=== PATIENT | female | born 1955 | race Caucasian/White ===

== ENCOUNTER → 2020-07-14 15:00 | Outpatient (BNVA) | payer OTHER, SELFPAY | PROVIDERS: PCP Internal Medicine; Visit Provider Nurse Practitioner | DX: Z13.89 Encounter for screening for other disorder (principal) | CPT/HCPCS: Q3014 ==

== ENCOUNTER → 2020-08-13 10:26 | Outpatient (BNVA) | payer MEDICARE, SELFPAY | PROVIDERS: PCP Internal Medicine; Visit Provider Nurse Practitioner | DX: Z13.89 Encounter for screening for other disorder (principal) | CPT/HCPCS: Q3014 ==

== ENCOUNTER 2020-09-02 11:33 | Outpatient (REF) | payer MEDICARE, SELFPAY ==
[2020-09-02 13:10] LABS: MANUAL DIFF FLAG NO
[2020-09-02 13:14] LABS: Basophils Absolute Auto 0.1 X10*3/uL (0.0-0.2); Basophils Percent Auto 0.8 % (0-2); Eosinophils Absolute Auto 0.2 X10*3/uL (0.0-0.4); Hematocrit 50.8 % (37-47); Hemoglobin 16.5 g/dl (12.0-16.0); Imm Gran Abs Auto 0.02 X10*3/uL (0.00-0.03); Imm Gran Pct Auto 0.3 % (0.0-0.4); Lymphocytes Absolute Auto 2.2 X10*3/uL (1.2-4.9); Lymphocytes Percent Auto 36.4 % (20-40); Mean Corpuscular HGB Conc 32.5 g/dl (31.0-35.0); Mean Corpuscular Hemoglobin 28.5 pg (27.0-33.0); Mean Corpuscular Volume 87.9 fL (80-98); Mean Platelet Volume 11.7 fL (9.4-12.3); Monocytes Absolute Auto 0.4 X10*3/uL (0.1-1.2); Monocytes Percent Auto 7.2 % (2-11); Neutrophils Absolute Auto 3.1 X10*3/uL (2.0-8.3); Neutrophils Percent Auto 52.3 % (45-73); Platelet Count 242 X10*3/uL (160-400); Red Blood Count 5.78 X10*6/uL (4.20-5.50); Red Cell Distribution Width 13.5 % (11.0-16.0)
[2020-09-02 13:37] LABS: Alanine Aminotransferase 52 U/L (0-31); Albumin Level 4.3 g/dL (3.5-5.0); Alkaline Phosphatase 113 U/L (39-117); Anion Gap 10 (12-20); Aspartate Amino Transferase 34 U/L (5-31); Bilirubin Total 0.8 mg/dL (0.0-1.0); Blood Urea Nitrogen 12 mg/dL (9-16); Calcium 9.7 mg/dL (8.4-10.2); Carbon Dioxide 30 mmol/L (22-29); Chloride 104 mmol/L (96-108); Estimated Glomerular Filt Rate > 60; Glucose Random 94 mg/dL (60-115); Potassium 4.5 mmol/L (3.3-5.1); Sodium 139 mmol/L (135-145); Total Protein 7.3 g/dL (6.5-8.0)
[2020-09-02 13:44] LABS: Glucose Urine UA NEG (NEG); Leukocyte Esterase Urine NEG (NEG); Nitrite Urine NEG (NEG); PH 5.5 (5.0-8.0); Specific Gravity - Urine 1.025 (1.005-1.025); Urine Blood NEG (NEG); Urine Ketones NEG (NEG); Urine Protein NEG (NEG-TRACE)
[2020-09-02 13:46] LABS: Appearance Urine CLEAR; Color Urine YELLOW
[2020-09-02 13:59] LABS: TSH reflex Free T4 0.61 uIU/mL (0.32-4.0)
[2020-09-03 21:52] LABS: Gliadin Deamidated IgA Ab 6 Units; Gliadin Deamidated IgG Ab 8 Units; Transglutaminase Ab IgG 5 U/mL; Transglutaminase IgA 1 U/mL
== END 2020-09-02 11:34 | disposition home or self-care (01) ==
LOC: HO.LAB 11:33
PROVIDERS: PCP Internal Medicine; Visit Provider Nurse Practitioner
DX: K59.04 Chronic idiopathic constipation (principal); R11.2 Nausea with vomiting, unspecified; R13.10 Dysphagia, unspecified; R68.81 Early satiety; K64.8 Other hemorrhoids; R06.02 Shortness of breath; M54.6 Pain in thoracic spine
CPT/HCPCS: 36415; 80053; 81003; 83516; 84443; 85025; 99212

== ENCOUNTER → 2020-10-01 07:53 | Outpatient (REF) | payer MEDICARE, SELFPAY ==
--- NOTE | ~2020-10-01 | XR_ITS ---
EXAMINATION: XR ABDOMEN WITH DECUBITUS VIEWS CLINICAL INDICATION: Pain in thoracic spine. COMPARISON: None TECHNIQUE: Abdomen with decubitus views. FINDINGS: There is scattered gas and stool in the colon without distention. No organomegaly. No radiopaque calculi. There is moderate degenerative spondylosis L1-L2 and L4-L5 disc levels. No acute fracture or lytic process seen. XR/XR abdomen w decubitus IMPRESSION: Mild constipation. No acute process. Mild spondylosis L1-L2 and L4-L5 disc levels.
--- NOTE | ~2020-10-01 | NM_ITS ---
EXAMINATION: NM RADIONUCLIDE SOLID FOOD GASTRIC EMPTYING 4-HOUR STUDY CLINICAL INFORMATION: Early satiety COMPARISON: None TECHNIQUE: A standard meal consisting of 4 oz of Egg Beaters brand tagged with 1.0 microcuries Tc-99m Sulfur Colloid, 6 oz water and 1 3/4 slice of toast with jelly was administered orally to the patient. Images were obtained using a dual head gamma camera in the anterior and posterior projections over of the stomach immediately post ingestion and at hourly intervals up to 4 hours post ingestion. The anterior and posterior counts at each time interval were averaged using the geometric mean and expressed as percentage of the immediate post ingestion counts. FINDINGS: There is good visualization of activity in the stomach immediately post ingestion. As the study progresses, there is good clearance of activity from the stomach and visualization of progressively increasing small bowel activity. By the end of the study, there is almost no retention noted in the stomach. Retention in the stomach at each time interval was: 1 hour 37% (normal 37%-90%) 2 hours 20% (normal 30%-60%) 3 hours 7% 4 hours 0% (normal 0%-10%) NM/NM gastric emptying study IMPRESSION: Normal 4-hour solid food gastric emptying study.
--- NOTE | ~2020-10-01 | XR_ITS ---
EXAMINATION: XR THORACOLUMBAR SPINE CLINICAL INFORMATION: Mid back pain. COMPARISON: None TECHNIQUE: 3 views. FINDINGS: There is normal thoracic kyphosis. The vertebral heights, alignment and disc heights are normal. There is moderate ventral spondylosis mid and lower dorsal spine. No lytic or sclerotic process. The paravertebral soft tissues are normal. XR/XR thoracic spine 2V IMPRESSION: Moderate spondylosis mid and lower dorsal spine. No visible acute fracture or dislocation seen. No lytic process.
== END ==
LOC: HO.NUCMED 07:53
PROVIDERS: PCP Internal Medicine; Visit Provider Nurse Practitioner
DX: R68.81 Early satiety (principal); R11.2 Nausea with vomiting, unspecified; K59.00 Constipation, unspecified; M54.6 Pain in thoracic spine; K59.04 Chronic idiopathic constipation
CPT/HCPCS: 72070; 74021; 78264; A9537; A9541

== ENCOUNTER → 2020-11-08 10:36 | Outpatient (BNVA) | payer MEDICARE, SELFPAY | PROVIDERS: PCP Internal Medicine; Referring Provider Internal Medicine; Visit Provider Nurse Practitioner | DX: K59.04 Chronic idiopathic constipation (principal); K64.9 Unspecified hemorrhoids; R11.2 Nausea with vomiting, unspecified; R68.81 Early satiety; R10.84 Generalized abdominal pain; M54.6 Pain in thoracic spine; M54.12 Radiculopathy, cervical region; M54.2 Cervicalgia | CPT/HCPCS: 99212 ==

== ENCOUNTER 2020-11-16 10:57 | Outpatient (REF) | payer MEDICARE, SELFPAY ==
--- NOTE | ~2020-11-16 | XR_ITS ---
EXAMINATION: XR CERVICAL SPINE CLINICAL INFORMATION: Cervicalgia. COMPARISON: None TECHNIQUE: Six views of the cervical spine. FINDINGS: No abnormal prevertebral soft tissue swelling is seen. On the lateral view, only down to C7 is visualized. There is limited visualization of the lateral spine on swimmer's view. There appears be mild disc space narrowing seen throughout the entire cervical spine. No acute fracture is evident. There is spurring with some bridging anteriorly from C2 through C6. There is some spurring seen about the joints of Luschka at C3-C4 bilaterally causing some degree of neural foraminal encroachment. There is facet arthropathy seen from C2 through C7. There is some degenerative narrowing with spurring and subchondral cyst formation about the anterior C1 vertebral body and the odontoid. XR/XR cervical spine 4V IMPRESSION: No acute cervical spine fracture identified. Multilevel degenerative changes, as described above.
[2020-11-16 12:36] LABS: Alanine Aminotransferase 39 U/L (0-31); Alkaline Phosphatase 104 U/L (39-117); Amylase 45 U/L (28-100); Anion Gap 13 (12-20); Aspartate Amino Transferase 31 U/L (5-31); Bilirubin Total 0.6 mg/dL (0.0-1.0); Blood Urea Nitrogen 9 mg/dL (9-16); Calcium 9.1 mg/dL (8.4-10.2); Carbon Dioxide 26 mmol/L (22-29); Chloride 106 mmol/L (96-108); Estimated Glomerular Filt Rate > 60; Glucose Random 134 mg/dL (60-115); Lactate Dehydrogenase 219 U/L (122-220); Lipase 71 U/L (8-78); Potassium 4.2 mmol/L (3.3-5.1); Sodium 141 mmol/L (135-145); Total Protein 7.1 g/dL (6.5-8.0)
== END 2020-11-16 10:58 | disposition home or self-care (01) ==
LOC: HO.XRAY 10:57
PROVIDERS: PCP Internal Medicine; Visit Provider Nurse Practitioner
DX: R10.84 Generalized abdominal pain (principal); M54.2 Cervicalgia; M54.12 Radiculopathy, cervical region
CPT/HCPCS: 36415; 72050; 80053; 82150; 83615; 83690

== ENCOUNTER 2020-12-01 10:49 | Outpatient (REF) | payer MEDICARE, SELFPAY | END 2020-12-01 10:50 | disposition home or self-care (01) | LOC: HO.CT 10:49 | PROVIDERS: PCP Internal Medicine; Visit Provider Nurse Practitioner | DX: Z13.89 Encounter for screening for other disorder (principal) ==

== ENCOUNTER 2021-01-04 09:02 | Day surgery (SDC) | payer MEDICARE, SELFPAY ==
[2020-12-30 09:56] VITALS: BMI 32.5
--- NOTE | 2021-01-03 09:09 | HO.ANESPROP2 ---
Documented by User: Jocelyn Moreno NP 01/03/21 09:10 HPI - Anesthesia Eval Consult details Narrative: 65yo F for Upper Endoscopy PMFSH Active Problems Active Problems: All Active Problems (Updated 12/29/20 @ 16:19 by Coni Jackson RN) Early satiety (Acute) Nausea and vomiting (Acute) Bleeding hemorrhoids (Acute) Chronic idiopathic constipation (Acute) Midline thoracic back pain (Acute) Insomnia (Acute) Generalized abdominal pain (Acute) Neck pain (Acute) Left cervical radiculopathy (Acute) Past Medical History Medical History Anxiety and depression Chronic pain Diabetes Elevated cholesterol HTN (hypertension) Hx of gastritis Insomnia Family History Family History Mother Colon cancer Surgical History Surgical History Hx of tonsillectomy Social History Social History Household Members: None Alcohol intake: current Alcohol intake frequency: holidays/special occasions only Patient Tobacco Use Status: Current everyday Tobacco user Use of substances other than those prescribed or required for medical reasons: No Are you DNR?: No Advance Directives: No Advance Directives Information Provided: Yes Meds Allergies Allergy/AdvReac Type Severity Reaction Status Date / Time cephalexin [From Keflex] Allergy Severe HIVES Verified 01/04/21 09:12 Home Medications Medication Instructions Recorded Confirmed Last Taken Type albuterol sulfate 90 mcg/actuation 2 puff INHALATION 07/14/20 11/08/20 Unknown History aerosol inhaler aspirin 81 mg chewable tablet 1 tab PO DAILY 07/14/20 12/29/20 Unknown History atenolol 25 mg tablet 25 mg PO DAILY 07/14/20 12/29/20 Unknown History atorvastatin 80 mg tablet 80 mg PO DAILY 07/14/20 12/29/20 Unknown History blood sugar diagnostic #10 ea 07/14/20 11/08/20 Unknown History blood-glucose meter #1 ea 07/14/20 11/08/20 Unknown History clotrimazole-betamethasone 1 appl TOPICAL BID 07/14/20 11/08/20 Unknown History %-0.05 % topical cream doxycycline monohydrate 100 mg 100 mg PO BID 07/14/20 12/29/20 Unknown History capsule enalapril maleate 10 mg tablet 10 mg PO DAILY 07/14/20 12/29/20 Unknown History ergocalciferol (vitamin D2) 1,250 1,250 mcg PO QWEEK 07/14/20 12/29/20 Unknown History mcg (50,000 unit) capsule famotidine 20 mg tablet 20 mg PO BID 07/14/20 12/29/20 Unknown History fluconazole 150 mg tablet 150 mg PO 07/14/20 11/08/20 Unknown History fluticasone propionate 110 2 puff INHALATION BID 07/14/20 12/29/20 Unknown History mcg/actuation HFA aerosol inhaler furosemide 20 mg tablet 20 mg PO DAILY 07/14/20 12/29/20 Unknown History hydroxyzine HCl 25 mg tablet 25 mg PO BID PRN 07/14/20 12/29/20 Unknown History isosorbide mononitrate 30 mg 30 mg PO QAM 07/14/20 12/29/20 Unknown History tablet,extended release 24 hr lancets 28 gauge #100 ea 07/14/20 11/08/20 Unknown History metformin 500 mg tablet 500 mg PO 07/14/20 11/08/20 Unknown History montelukast 10 mg tablet 10 mg PO BEDTIME 07/14/20 12/29/20 Unknown History omega-3 acid ethyl esters 1 gram 2 cap PO BID 07/14/20 12/29/20 Unknown History capsule sertraline 25 mg tablet 25 mg PO DAILY 07/14/20 12/29/20 Unknown History tramadol 50 mg tablet 50 mg PO BID PRN 07/14/20 12/29/20 Unknown History trazodone 50 mg tablet 50 mg PO BEDTIME 07/14/20 12/29/20 Unknown History clonazepam 2 mg tablet 2 mg PO BID PRN 11/08/20 12/29/20 Unknown History diazepam 10 mg tablet 10 mg PO BEDTIME PRN tab 11/08/20 12/29/20 Unknown History escitalopram oxalate 10 mg tablet 1 tab PO DAILY 12/29/20 12/29/20 Unknown History plecanatide 3 mg tablet (Trulance) 1 tab PO DAILY 12/29/20 12/29/20 Unknown History tiotropium bromide 18 mcg capsule 1 cap INHALATION DAILY 12/29/20 12/29/20 Unknown History with inhalation device (Spiriva with HandiHaler) Exam Exam Date and Time: January 03, [id number] Height,Weight and Vital Signs: Height 5 ft 3 in Weight 83.461 kg Pertinent Lab Results Pertinent Lab Results: Laboratory Tests 09/02/20 11/16/20 12:40 11:25 WBC 6.0 Hgb 16.5 H Hct 50.8 H Plt Count 242 Sodium 141 Potassium 4.2 Chloride 106 Carbon Dioxide 26 BUN 9 Creatinine 0.68 Assessment and Plan Assessment Anesthesia Assessment: Chart Reviewed Documented by User: Meron Urban MD 01/04/21 10:34 [facility] Active Problems Active Problems: All Active Problems (Updated 12/29/20 @ 16:19 by Coni Jackson RN) Early satiety (Acute) Nausea and vomiting (Acute) Bleeding hemorrhoids (Acute) Chronic idiopathic constipation (Acute) Midline thoracic back pain (Acute) Insomnia (Acute) Generalized abdominal pain (Acute) Neck pain (Acute) Left cervical radiculopathy Smoker Asthma/COPD. O2 sats 91-94 in [place]. Not on home O2 Past Medical History Medical History Anxiety and depression Chronic pain Diabetes Elevated cholesterol HTN (hypertension) Hx of gastritis Insomnia Family History Family History Mother Colon cancer Family history of problems with anesthesia: No Surgical History Surgical History Hx of tonsillectomy History of Problems with Anesthesia: No Social History Social History Household Members: None Alcohol intake: current Alcohol intake frequency: holidays/special occasions only Patient Tobacco Use Status: Current everyday Tobacco user Use of substances other than those prescribed or required for medical reasons: No Are you DNR?: No Advance Directives: No Advance Directives Information Provided: Yes Meds Allergies Allergy/AdvReac Type Severity Reaction Status Date / Time cephalexin [From Keflex] Allergy Severe HIVES Verified 01/04/21 09:12 Home Medications Medication Instructions Recorded Confirmed Last Taken Type albuterol sulfate 90 mcg/actuation 2 puff INHALATION 07/14/20 11/08/20 Unknown History aerosol inhaler aspirin 81 mg chewable tablet 1 tab PO DAILY 07/14/20 12/29/20 Unknown History atenolol 25 mg tablet 25 mg PO DAILY 07/14/20 12/29/20 Unknown History atorvastatin 80 mg tablet 80 mg PO DAILY 07/14/20 12/29/20 Unknown History blood sugar diagnostic #10 ea 07/14/20 11/08/20 Unknown History blood-glucose meter #1 ea 07/14/20 11/08/20 Unknown History clotrimazole-betamethasone 1 appl TOPICAL BID 07/14/20 11/08/20 Unknown History %-0.05 % topical cream doxycycline monohydrate 100 mg 100 mg PO BID 07/14/20 12/29/20 Unknown History capsule enalapril maleate 10 mg tablet 10 mg PO DAILY 07/14/20 12/29/20 Unknown History ergocalciferol (vitamin D2) 1,250 1,250 mcg PO QWEEK 07/14/20 12/29/20 Unknown History mcg (50,000 unit) capsule famotidine 20 mg tablet 20 mg PO BID 07/14/20 12/29/20 Unknown History fluconazole 150 mg tablet 150 mg PO 07/14/20 11/08/20 Unknown History fluticasone propionate 110 2 puff INHALATION BID 07/14/20 12/29/20 Unknown History mcg/actuation HFA aerosol inhaler furosemide 20 mg tablet 20 mg PO DAILY 07/14/20 12/29/20 Unknown History hydroxyzine HCl 25 mg tablet 25 mg PO BID PRN 07/14/20 12/29/20 Unknown History isosorbide mononitrate 30 mg 30 mg PO QAM 07/14/20 12/29/20 Unknown History tablet,extended release 24 hr lancets 28 gauge #100 ea 07/14/20 11/08/20 Unknown History metformin 500 mg tablet 500 mg PO 07/14/20 11/08/20 Unknown History montelukast 10 mg tablet 10 mg PO BEDTIME 07/14/20 12/29/20 Unknown History omega-3 acid ethyl esters 1 gram 2 cap PO BID 07/14/20 12/29/20 Unknown History capsule sertraline 25 mg tablet 25 mg PO DAILY 07/14/20 12/29/20 Unknown History tramadol 50 mg tablet 50 mg PO BID PRN 07/14/20 12/29/20 Unknown History trazodone 50 mg tablet 50 mg PO BEDTIME 07/14/20 12/29/20 Unknown History clonazepam 2 mg tablet 2 mg PO BID PRN 11/08/20 12/29/20 Unknown History diazepam 10 mg tablet 10 mg PO BEDTIME PRN tab 11/08/20 12/29/20 Unknown History escitalopram oxalate 10 mg tablet 1 tab PO DAILY 12/29/20 12/29/20 Unknown History plecanatide 3 mg tablet (Trulance) 1 tab PO DAILY 12/29/20 12/29/20 Unknown History tiotropium bromide 18 mcg capsule 1 cap INHALATION DAILY 12/29/20 12/29/20 Unknown History with inhalation device (Spiriva with HandiHaler) Exam Height,Weight and Vital Signs: Height 5 ft 3 in Weight 83.461 kg Vital Signs Temp Pulse Resp BP Pulse Ox 01/04/21 09:56 98.4 F 82 18 134/84 93 Pertinent Lab Results Pertinent Lab Results: Laboratory Tests 09/02/20 11/16/20 12:40 11:25 WBC 6.0 Hgb 16.5 H Hct 50.8 H Plt Count 242 Sodium 141 Potassium 4.2 Chloride 106 Carbon Dioxide 26 BUN 9 Creatinine 0.68 Lab Results 01/04/21 Range/Units 09:37 POC Glucose 110 (60-115) mg/dL Airway Mallampati Class: III TM Dist: >3cm Neck ROM: Full Denture: Upper and Lower Heart: RRR Lungs: CTAB Assessment and Plan Assessment Anesthesia Assessment: Anesthesia Plan Discussed Final Anesthetic Review Family History of Problems with Anesthesia: No History of Problems with Anesthesia: No NPO: Yes ASA Class: III Final Preanesthetic Review: No Changes in Pt Med Stat, Meds/Allgs Chart Reviewed, Consent Obtained/Reviewed and Anes Risks/Benef Reviewed Patient Risk: Intermediate Procedure Risk: Low Assessment/Block/Sedation in SS: Assess/Block/Sedation-SS Anesthetic Plan Anesthetic Plan: MAC: Disposition: Standard PACU
--- NOTE | 2021-01-04 09:21 | MHC.SHP ---
Pre-Procedural Eval Section A Date of Service: 01/04/21 The patient is an INPATIENT: No The History & Physical has been completed within 30 days and I have reviewed it.: No Section B Chief Complaint: abdominal pain Details of Present Illness: chronic abdominal pain. Relevant Family History (Specify if Yes): Yes Relevant Social History: None Present Medications: see Short Stay Collaborative assessment Medical History: Significant History (DM, hypertension, elevated cholesterol level, chronic pain) History of Previous Operations: Relevant previous surgery/procedure and date(s) (hx of tonsillectomy) Allergies: Allergies Allergy/AdvReac Type Severity Reaction Status Date / Time cephalexin [From Keflex] Allergy Severe HIVES Verified 01/04/21 09:12 Review of Systems Sugical H&P ROS: Negative: Constitution, Cardiovascular and Respiratory and Yes, Specify: Gastrointestinal (abd pain) Exam Surgical H&P Exam: Normal: Heart, Normal: Lungs, Normal: Extremities and Normal: Abdomen Plan Diagnosis/Plan: Unchanged I have reviewed the history and physical and performed a pertinent physical examination on my patient. No changes have occurred unless specified.
--- NOTE | 2021-01-04 09:22 | P.BOP_ITS ---
Brief Operative Note Date of Service: 01/04/21 Pre-op diagnosis: Abdominal pain Post-op diagnosis: other (Gastritis, multiple gastric ulcers, duodenitis) Procedure: FLEXIBLE TRANSORAL UPPER GASTROINTESTINAL ENDOSCOPY WITH BIOPSIES Consent: Indications for the procedure and potential complications of bleeding, perforation, reaction to medications and missed diagnosis were discussed with the patient and informed consent was obtained. Instrument: Olympus GIF H 190 mid size upper endoscope Monitoring: Vital signs and clinical assessment, continuous EKG monitoring, Pulse oximetry, Carbon Dioxide monitoring and blood pressure monitoring were done throughout the procedure. Procedure: The patient was placed in the left lateral decubitis position and pre-procedure medications were administered and a bite block was placed. The endoscope was inserted into the mouth and advanced under direct vision to the third part of duodenum. A careful inspection was made as the upper endoscope was withdrawn including a retroflexed examination of the proximal stomach; Findings and interventions are described below. Findings: Larynx: Normal Esophagus: Mildly tortuous esophagus with increased tertiary contractions without stricture or ring. GE junction at 33 cms, small hiatal hernia 33 to 35 cms.. No esophagitis or Clemens Stomach: Moderate diffuse gastric erythema with multiple edematous folds in the antrum with chronic appearing non-bleeding 5 to 10 mm ulcers. Biopsies were ob tained. Grade 2 flap valve on retroflexed examination of the cardia. Duodenum: Mild duodenitis in the bulb. A prominent fold in the proximal descending duodenum - biopsied. Biopsies were obtained from 3rd part of the duodenum to check for celiac sprue Intervention: Biopsies as noted above Impression and Post Procedure Diagnosis: Endoscopy Findings: ESOPHAGUS: Small hiatal hernia and mildly tortuous esophagus with increased tertiary contractions without stricture or ring. STOMACH: Moderate diffuse gastric erythema with multiple edematous folds in the antrum with chronic appearing non-bleeding 5 to 10 mm ulcers. Biopsies were obtained. DUODENUM: Mild duodenitis in the bulb. A prominent fold in the proximal descending duodenum - biopsied Plan: Await pathology results. Pt was advised to start taking Omeprazole 20 mg twice daily - prescription was sent to patient's preferred pharmacy. Patient has an appointment on 01/21/21 in the GI Clinic with Christine Romero NP . Repeat EGD in 8 to 12 weeks to confirm ulcers have healed. Above findings were reviewed with the patient and Peptic ulcer disease handouts were given in the discharge area. Pt was advised to schedule an Abd CT scan for further evaluation of abdominal pain - Order was placed by Christine Romero in November. Surgeon: Korin Franklin MD Anesthesia: MAC (Aure Linares CRNA) Was an Manager Sourcing used for this Procedure?: Yes Manager Sourcing: Susan Trinidad Estimated blood loss (mL): 0 Pathology: other (A. small bowel, R/O Celiac/Sprue B. duodenal fold C. gastric ulcers D. gastric antrum, R/O H. pylori) Condition: stable Disposition: PACU
--- NOTE | 2021-01-04 09:23 | W.PM.OPN ---
Operative Note Operative Note Date of Service: 01/04/21 Narrative: Pre-op diagnosis:?Abdominal pain Post-op diagnosis:?other (Gastritis, multiple gastric ulcers, duodenitis) Procedure:? FLEXIBLE TRANSORAL UPPER GASTROINTESTINAL ENDOSCOPY WITH BIOPSIES Consent:?Indications for the procedure and potential complications of bleeding, perforation, reaction to medications and missed diagnosis were discussed with the patient and informed consent was obtained. Instrument:?Olympus GIF H 190 mid size upper endoscope Monitoring: Vital signs and clinical assessment, continuous EKG monitoring, Pulse oximetry, Carbon Dioxide monitoring and blood pressure monitoring were done throughout the procedure. Procedure:?The patient was placed in the left lateral decubitis position and pre-procedure medications were administered and a bite block was placed. The endoscope was inserted into the mouth and advanced under direct vision to the third part of duodenum. A careful inspection was made as the upper endoscope was withdrawn including a retroflexed examination of the proximal stomach; Findings and interventions are described below. Findings: Larynx:? Normal Esophagus:? Mildly tortuous esophagus with increased tertiary contractions without stricture or ring. ??GE junction at 33 cms, small hiatal hernia 33 to 35 cms.. No esophagitis or Clemens Stomach:?Moderate diffuse gastric erythema with multiple edematous folds in the antrum with chronic appearing non-bleeding 5 to 10 mm ulcers. Biopsies were obtained. Grade 2 flap valve on retroflexed examination of the cardia. Duodenum:?Mild duodenitis in the bulb.? A prominent fold in the proximal descending duodenum - biopsied.? Biopsies were obtained from 3rd part of the duodenum to check for celiac sprue Intervention:?Biopsies as noted above Impression and Post Procedure Diagnosis: Endoscopy Findings: ESOPHAGUS: ? Small hiatal hernia and mildly tortuous esophagus with increased tertiary contractions without stricture or ring.? STOMACH: ? Moderate diffuse gastric erythema with multiple edematous folds in the antrum with chronic appearing non-bleeding 5 to 10 mm ulcers. Biopsies were obtained. DUODENUM: Mild duodenitis in the bulb.? A prominent fold in the proximal descending duodenum - biopsied Plan: Await pathology results. Pt was advised to start taking Omeprazole 20 mg twice daily - prescription was sent to patient's preferred pharmacy. Patient has an appointment on 01/21/21 in the GI Clinic with Christine Romero NP . Repeat EGD in 8 to 12 weeks to confirm ulcers have healed. Above findings were reviewed with the patient and Peptic ulcer disease handouts were given in the discharge area. Pt was advised to schedule an Abd CT scan for further evaluation of abdominal pain - Order was placed by Christine Romero in November. Surgeon:?Korin Franklin MD Anesthesia:?MAC (Aure Linares CRNA) Was an Building Construction Superintendent used for this Procedure?:?Yes Building Construction Superintendent:?Susan Trinidad Estimated blood loss (mL):?0 Pathology:?other (A. small bowel, R/O Celiac/Sprue? B. duodenal fold? C. gastric ulcers? D. gastric antrum, R/O H. pylori) Condition:?stable Disposition:?PACU
[2021-01-04 09:47] LABS: Glucose, Whole Blood 110 mg/dL (60-115)
[2021-01-04 09:56] VITALS: BP 134/84; PULSE 82; RESP 18; TEMP 36.9; O2SAT 93
[2021-01-04] MEDS: Lactated Ringers 1,000 ML 100 ML IVCONT (10:10)
[2021-01-04 10:52] VITALS: BP 104/59; PULSE 85; RESP 18; TEMP 36.5; O2SAT 99
[2021-01-04 11:07] VITALS: BP 109/69; PULSE 18; RESP 18; TEMP 36.5; O2SAT 94
== END 2021-01-04 12:01 | disposition home or self-care (01) ==
PROVIDERS: PCP Internal Medicine; Visit Provider Internal Medicine Gastroenterology
PROC: 0DJ08ZZ Inspection of Upper Intestinal Tract, Via Natural or Artificial Opening Endoscopic (ICD-10-PCS; CPT 43235; principal; 2021-01-04 10:00)
DX: K29.70 Gastritis, unspecified, without bleeding (principal); B96.81 Helicobacter pylori [H. pylori] as the cause of diseases classified elsewhere; K25.9 Gastric ulcer, unspecified as acute or chronic, without hemorrhage or perforation; K29.80 Duodenitis without bleeding; K44.9 Diaphragmatic hernia without obstruction or gangrene; K59.04 Chronic idiopathic constipation; G89.29 Other chronic pain; I10 Essential (primary) hypertension; E11.9 Type 2 diabetes mellitus without complications; Z79.82 Long term (current) use of aspirin; Z79.84 Long term (current) use of oral hypoglycemic drugs; Z79.899 Other long term (current) drug therapy
CPT/HCPCS: 43239; 82947; 88305; 88342

== ENCOUNTER → 2021-01-21 09:25 | Outpatient (BNVA) | payer MEDICARE, SELFPAY | PROVIDERS: PCP Internal Medicine; Visit Provider Nurse Practitioner | DX: K59.04 Chronic idiopathic constipation (principal); K25.9 Gastric ulcer, unspecified as acute or chronic, without hemorrhage or perforation; A04.8 Other specified bacterial intestinal infections | CPT/HCPCS: Q3014 ==

== ENCOUNTER 2021-03-22 06:40 | Day surgery (SDC) | payer MEDICARE, SELFPAY ==
[2021-03-15 14:17] VITALS: BMI 32.5
--- NOTE | 2021-03-21 09:45 | HO.ANESPROP2 ---
Documented by User: Jocelyn Moreno NP 03/21/21 09:46 HPI - Anesthesia Eval Consult details Narrative: 65yo F for Upper Endoscopy s/p EGD 12/2020 with TIVA PMFSH Active Problems Active Problems: All Active Problems (Updated 03/15/21 @ 14:14 by Bethanie Camargo RN) Bleeding hemorrhoids (Acute) Chronic idiopathic constipation (Acute) Midline thoracic back pain (Acute) Insomnia (Acute) Neck pain (Acute) Left cervical radiculopathy (Acute) Multiple gastric ulcers (Acute) H. pylori infection (Acute) Past Medical History Medical History (Updated 03/15/21 @ 14:14 by Bethanie Camargo RN) Anxiety and depression Chronic pain Diabetes Early satiety Elevated cholesterol Generalized abdominal pain HTN (hypertension) Hx of gastritis Insomnia Nausea and vomiting Family History Family History Mother Colon cancer Family history of problems with anesthesia: No Surgical History Surgical History History of esophagogastroduodenoscopy (EGD) Hx of tonsillectomy History of Problems with Anesthesia: No Social History Social History Household Members: None Alcohol intake: current Alcohol intake frequency: holidays/special occasions only Patient Tobacco Use Status: Current everyday Tobacco user Tobacco use type: Cigarette Advance Directives Information Provided: Yes (informational brochure mailed) Advance Directives on File: No Meds Allergies Allergy/AdvReac Type Severity Reaction Status Date / Time cephalexin [From Keflex] Allergy Severe HIVES Verified 01/04/21 09:12 Home Medications Medication Instructions Recorded Confirmed Last Taken Type albuterol sulfate 90 mcg/actuation 2 puff INHALATION 07/14/20 11/08/20 Unknown History aerosol inhaler aspirin 81 mg chewable tablet 1 tab PO DAILY 07/14/20 12/29/20 Unknown History atenolol 25 mg tablet 25 mg PO DAILY 07/14/20 12/29/20 Unknown History atorvastatin 80 mg tablet 80 mg PO DAILY 07/14/20 12/29/20 Unknown History blood sugar diagnostic #10 ea 07/14/20 11/08/20 Unknown History blood-glucose meter #1 ea 07/14/20 11/08/20 Unknown History clotrimazole-betamethasone 1 appl TOPICAL BID 07/14/20 11/08/20 Unknown History %-0.05 % topical cream doxycycline monohydrate 100 mg 100 mg PO BID 07/14/20 12/29/20 Unknown History capsule enalapril maleate 10 mg tablet 10 mg PO DAILY 07/14/20 12/29/20 Unknown History ergocalciferol (vitamin D2) 1,250 1,250 mcg PO QWEEK 07/14/20 12/29/20 Unknown History mcg (50,000 unit) capsule famotidine 20 mg tablet 20 mg PO BID 07/14/20 12/29/20 Unknown History fluconazole 150 mg tablet 150 mg PO 07/14/20 11/08/20 Unknown History fluticasone propionate 110 2 puff INHALATION BID 07/14/20 12/29/20 Unknown History mcg/actuation HFA aerosol inhaler furosemide 20 mg tablet 20 mg PO DAILY 07/14/20 12/29/20 Unknown History hydroxyzine HCl 25 mg tablet 25 mg PO BID PRN 07/14/20 12/29/20 Unknown History isosorbide mononitrate 30 mg 30 mg PO QAM 07/14/20 12/29/20 Unknown History tablet,extended release 24 hr lancets 28 gauge #100 ea 07/14/20 11/08/20 Unknown History metformin 500 mg tablet 500 mg PO 07/14/20 11/08/20 Unknown History montelukast 10 mg tablet 10 mg PO BEDTIME 07/14/20 12/29/20 Unknown History omega-3 acid ethyl esters 1 gram 2 cap PO BID 07/14/20 12/29/20 Unknown History capsule sertraline 25 mg tablet 25 mg PO DAILY 07/14/20 12/29/20 Unknown History tramadol 50 mg tablet 50 mg PO BID PRN 07/14/20 12/29/20 Unknown History trazodone 50 mg tablet 50 mg PO BEDTIME 07/14/20 12/29/20 Unknown History clonazepam 2 mg tablet 2 mg PO BID PRN 11/08/20 12/29/20 Unknown History diazepam 10 mg tablet 10 mg PO BEDTIME PRN tab 11/08/20 12/29/20 Unknown History escitalopram oxalate 10 mg tablet 1 tab PO DAILY 12/29/20 12/29/20 03/22/21 History plecanatide 3 mg tablet (Trulance) 1 tab PO DAILY 12/29/20 12/29/20 Unknown History tiotropium bromide 18 mcg capsule 1 cap INHALATION DAILY 12/29/20 12/29/20 Unknown History with inhalation device (Spiriva with HandiHaler) Exam Exam Date and Time: March 21, 2021 0945 Height,Weight and Vital Signs: Height 5 ft 3 in Weight 83.461 kg Pertinent Lab Results Pertinent Lab Results: Laboratory Tests 09/02/20 11/16/20 12:40 11:25 WBC 6.0 Hgb 16.5 H Hct 50.8 H Plt Count 242 Sodium 141 Potassium 4.2 Chloride 106 Carbon Dioxide 26 BUN 9 Creatinine 0.68 Assessment and Plan Assessment Anesthesia Assessment: Chart Reviewed Final Anesthetic Review Family History of Problems with Anesthesia: No History of Problems with Anesthesia: No Documented by User: Nataliia Elder MD 03/22/21 09:33 [facility] Past Medical History Medical History (Updated 03/15/21 @ 14:14 by Bethanie Camargo RN) Anxiety and depression Chronic pain Diabetes Early satiety Elevated cholesterol Generalized abdominal pain HTN (hypertension) Hx of gastritis Insomnia Nausea and vomiting Functional capacity: independent ambulation Patient : No Family History Family History Mother Colon cancer Surgical History Surgical History History of esophagogastroduodenoscopy (EGD) Hx of tonsillectomy Social History Social History Household Members: None Alcohol intake: current Alcohol intake frequency: holidays/special occasions only Patient Tobacco Use Status: Current everyday Tobacco user Tobacco use type: Cigarette Advance Directives Information Provided: Yes (informational brochure mailed) Advance Directives on File: No Meds Allergies Allergy/AdvReac Type Severity Reaction Status Date / Time cephalexin [From Keflex] Allergy Severe HIVES Verified 01/04/21 09:12 Home Medications Medication Instructions Recorded Confirmed Last Taken Type albuterol sulfate 90 mcg/actuation 2 puff INHALATION 07/14/20 11/08/20 Unknown History aerosol inhaler aspirin 81 mg chewable tablet 1 tab PO DAILY 07/14/20 12/29/20 Unknown History atenolol 25 mg tablet 25 mg PO DAILY 07/14/20 12/29/20 Unknown History atorvastatin 80 mg tablet 80 mg PO DAILY 07/14/20 12/29/20 Unknown History blood sugar diagnostic #10 ea 07/14/20 11/08/20 Unknown History blood-glucose meter #1 ea 07/14/20 11/08/20 Unknown History clotrimazole-betamethasone 1 appl TOPICAL BID 07/14/20 11/08/20 Unknown History %-0.05 % topical cream doxycycline monohydrate 100 mg 100 mg PO BID 07/14/20 12/29/20 Unknown History capsule enalapril maleate 10 mg tablet 10 mg PO DAILY 07/14/20 12/29/20 Unknown History ergocalciferol (vitamin D2) 1,250 1,250 mcg PO QWEEK 07/14/20 12/29/20 Unknown History mcg (50,000 unit) capsule famotidine 20 mg tablet 20 mg PO BID 07/14/20 12/29/20 Unknown History fluconazole 150 mg tablet 150 mg PO 07/14/20 11/08/20 Unknown History fluticasone propionate 110 2 puff INHALATION BID 07/14/20 12/29/20 Unknown History mcg/actuation HFA aerosol inhaler furosemide 20 mg tablet 20 mg PO DAILY 07/14/20 12/29/20 Unknown History hydroxyzine HCl 25 mg tablet 25 mg PO BID PRN 07/14/20 12/29/20 Unknown History isosorbide mononitrate 30 mg 30 mg PO QAM 07/14/20 12/29/20 Unknown History tablet,extended release 24 hr lancets 28 gauge #100 ea 07/14/20 11/08/20 Unknown History metformin 500 mg tablet 500 mg PO 07/14/20 11/08/20 Unknown History montelukast 10 mg tablet 10 mg PO BEDTIME 07/14/20 12/29/20 Unknown History omega-3 acid ethyl esters 1 gram 2 cap PO BID 07/14/20 12/29/20 Unknown History capsule sertraline 25 mg tablet 25 mg PO DAILY 07/14/20 12/29/20 Unknown History tramadol 50 mg tablet 50 mg PO BID PRN 07/14/20 12/29/20 Unknown History trazodone 50 mg tablet 50 mg PO BEDTIME 07/14/20 12/29/20 Unknown History clonazepam 2 mg tablet 2 mg PO BID PRN 11/08/20 12/29/20 Unknown History diazepam 10 mg tablet 10 mg PO BEDTIME PRN tab 11/08/20 12/29/20 Unknown History escitalopram oxalate 10 mg tablet 1 tab PO DAILY 12/29/20 12/29/20 03/22/21 History plecanatide 3 mg tablet (Trulance) 1 tab PO DAILY 12/29/20 12/29/20 Unknown History tiotropium bromide 18 mcg capsule 1 cap INHALATION DAILY 12/29/20 12/29/20 Unknown History with inhalation device (Spiriva with HandiHaler) Exam Airway Mallampati Class: IV TM Dist: >3cm Neck ROM: Full Denture: Upper and Lower Heart: RRR Lungs: CTA Assessment and Plan Final Anesthetic Review ASA Class: III Final Preanesthetic Review: No Changes in Pt Med Stat Patient Risk: Intermediate Procedure Risk: Low Anesthetic Plan Anesthetic Plan: MAC: Disposition: Standard PACU
[2021-03-22 08:05] VITALS: BP 136/80; PULSE 86; RESP 16; TEMP 36.7; O2SAT 96
[2021-03-22] MEDS: Lactated Ringers 1,000 ML 100 ML IVCONT (08:24)
[2021-03-22 08:28] LABS: Glucose, Whole Blood 128 mg/dL (60-115)
--- NOTE | 2021-03-22 08:51 | MHC.SHP ---
Pre-Procedural Eval Section A Date of Service: 03/22/21 The patient is an INPATIENT: No The History & Physical has been completed within 30 days and I have reviewed it.: No Section B Chief Complaint: Gastric Ulcer Relevant Family History (Specify if Yes): Yes Relevant Social History: Tobacco Use Present Medications: see Short Stay Collaborative assessment Medical History: Significant History (Anxiety and depression Chronic pain Diabetes Early satiety Elevated cholesterol Generalized abdominal pain HTN (hypertension) Hx of gastritis Insomnia Nausea and vomiting) History of Previous Operations: Relevant previous surgery/procedure and date(s) (History of esophagogastroduodenoscopy (EGD) Hx of tonsillectomy) Allergies: Allergies Allergy/AdvReac Type Severity Reaction Status Date / Time cephalexin [From Keflex] Allergy Severe HIVES Verified 01/04/21 09:12 Review of Systems Sugical H&P ROS: Negative: Constitution, Cardiovascular and Respiratory and Yes, Specify: Gastrointestinal (chronic abdominal pain) Exam Surgical H&P Exam: Normal: Heart, Normal: Lungs and Normal: Extremities and Significant Findings: Abdomen (upper abd tenderness) Plan Diagnosis/Plan: Unchanged I have reviewed the history and physical and performed a pertinent physical examination on my patient. No changes have occurred unless specified.
--- NOTE | 2021-03-22 08:56 | P.BOP_ITS ---
Brief Operative Note Date of Service: 03/22/21 Pre-op diagnosis: Abdominal pain, nausea vomiting, early satiety, follow-up of gastric ulcers Post-op diagnosis: other (GERD, persistent gastric ulcers, prominent duodenal papilla/submucosal mass or cyst) Procedure: FLEXIBLE TRANSORAL UPPER GASTROINTESTINAL ENDOSCOPY WITH BIOPSIES Consent: Indications for the procedure and potential complications of bleeding, perforation, reaction to medications and missed diagnosis were discussed with the patient and informed consent was obtained. Instrument: Olympus GIF H 190 mid size upper endoscope Monitoring: Vital signs and clinical assessment, continuous EKG monitoring, Pulse oximetry, Carbon Dioxide monitoring and blood pressure monitoring were done throughout the procedure. Procedure: The patient was placed in the left lateral decubitis position and pre-procedure medications were administered and a bite block was placed. The endoscope was inserted into the mouth and advanced under direct vision to the third part of duodenum. A careful inspection was made as the upper endoscope was withdrawn including a retroflexed examination of the proximal stomach; Findings and interventions are described below. Findings: Larynx: Normal Esophagus: Tortuous esophagus with increased tertiary contractions without stricture or ring. GE junction at 36 cms. No esophagitis. A 1.5 to 2 cms island of possible Cleemns's - biopsies were obtained. Stomach: Multiple gastric ulcers in the entire stomach - biopsied. Biopsies were obtained to check for H Pylori eradication. Grade 2 flap valve on retroflexed examination of the cardia. Duodenum: Normal bulb. Prominent duodenal papilla with a smooth 2 cms submucosal mass/cyst in the medial wall of descending duodenum - multiple biopsies were obtained. Intervention: Biopsies as noted above Impression and Post Procedure Diagnosis: Endoscopy Findings: ESOPHAGUS: A 1.5 to 2 cms island of possible Clemens's - biopsies were obtained. STOMACH: Persistent gastric ulcers - likely a combination of aspirin use and continued heavy smoking. (Pt reported she has not been taking Omeprazole since she ran out of the medication - refill sent). DUODENUM: Prominent duodenal papilla/smooth 2 cms mass with normal overlying mucosa in the medial wall of descending duodenum - multiple biopsies were obtained. Plan: Await pathology results Patient has an appointment on 04/05/21 in the GI Clinic with Christine Romero NP. Check a fasting serum gastric level. Schedule MRCP to FU on prominent duodenal papilla. If MRCP is normal, advise referreing patient to [facility] [place] for [place]. GERD and PUD handouts were given in the discharge area Surgeon: Korin Franklin MD Anesthesia: MAC (Dr Malone) Was an Harvest Field Ticketer used for this Procedure?: Yes Harvest Field Ticketer: Susan Trinidad Estimated blood loss (mL): 0 Pathology: other (A. duodenal papilla bxs B. gastric antrum bxs, R/O H. pylori C. gastric ulcers bxs D. distal esophagus bxs, R/O Clemens's) Condition: stable Disposition: PACU
--- NOTE | 2021-03-22 08:57 | P.OP_ITS ---
Operative Note Operative Note Date of Service: 03/22/21 Narrative: Pre-op diagnosis:?Abdominal pain, nausea vomiting, early satiety, follow-up of gastric ulcers Post-op diagnosis:?other (GERD, persistent gastric ulcers, prominent duodenal papilla/submucosal mass or cyst) Procedure:? FLEXIBLE TRANSORAL UPPER GASTROINTESTINAL ENDOSCOPY WITH BIOPSIES Consent:?Indications for the procedure and potential complications of bleeding, perforation, reaction to medications and missed diagnosis were discussed with the patient and informed consent was obtained. Instrument:?Olympus GIF H 190 mid size upper endoscope Monitoring: Vital signs and clinical assessment, continuous EKG monitoring, Pulse oximetry, Carbon Dioxide monitoring and blood pressure monitoring were done throughout the procedure. Procedure:?The patient was placed in the left lateral decubitis position and pre-procedure medications were administered and a bite block was placed. The endoscope was inserted into the mouth and advanced under direct vision to the third part of duodenum. A careful inspection was made as the upper endoscope was withdrawn including a retroflexed examination of the proximal stomach; Findings and interventions are described below. Findings: Larynx:? Normal Esophagus:? Tortuous esophagus with increased tertiary contractions without stricture or ring.? GE junction at 36 cms. No esophagitis.? A 1.5 to 2 cms island of possible Clemens's - biopsies were obtained. Stomach: Multiple gastric ulcers in the entire stomach - biopsied. Biopsies were obtained to check for H Pylori eradication. Grade 2 flap valve on retroflexed examination of the cardia. Duodenum: Normal bulb.? Prominent duodenal papilla with a smooth 2 cms submucosal mass/cyst in the medial wall of descending duodenum - multiple biopsies were obtained. Intervention: Biopsies as noted above Impression and Post Procedure Diagnosis: Endoscopy Findings: ESOPHAGUS: A 1.5 to 2 cms island of possible Clemens's - biopsies were obtained. STOMACH: Persistent gastric ulcers - likely a combination of aspirin use and con tinued heavy smoking. (Pt reported she has not been taking Omeprazole since she ran out of the medication - refill sent). DUODENUM: Prominent duodenal papilla/smooth 2 cms mass with with a smooth 2 cms submucosal mass/cyst in the medial wall of descending duodenum - multiple biopsies were obtained. Plan: Await pathology results Patient has an appointment on 04/05/21 in the GI Clinic with Christine Romero NP. Check a fasting serum gastric level. Schedule MRCP to FU on prominent duodenal papilla.? If MRCP is normal, advise referreing patient to [facility] [place] for an EUS. GERD and PUD handouts were given in the discharge area Surgeon:?Korin Franklin MD Anesthesia:?MAC (Dr Malone) Was an Flight Reservations Manager used for this Procedure?:?Yes Flight Reservations Manager:?Susan Trinidad Estimated blood loss (mL):?0 Pathology:?other (A. duodenal papilla bxs? B. gastric antrum bxs, R/O H. pylori? C. gastric ulcers bxs? D. distal esophagus bxs, R/O Clemens's) Condition:?stable Disposition:?PACU
[2021-03-22 09:26] VITALS: BP 113/72; PULSE 94; RESP 16; TEMP 36.9; O2SAT 97
[2021-03-22 09:41] VITALS: BP 104/60; PULSE 96; RESP 22; TEMP 36.9; O2SAT 98
--- NOTE | 2021-03-22 11:57 | HO.POSTANES ---
Post Anesthesia Evaluation Post Anesthesia Evaluation Vital Signs: Vital Signs Temp Pulse Resp BP Pulse Ox 03/22/21 09:41 98.5 F 96 22 H 104/60 98 03/22/21 09:26 98.5 F 94 16 113/72 97 03/22/21 08:05 98.1 F 86 16 136/80 96 Anesthesia: Monitored Mental Status: Awake Pain Control: Satisfactory Nausea/Vomiting: None Hydration: Adequate Anesthesia-Related Issues: No Anes. Related Issues
[2021-03-26 09:01] LABS: Gastrin 25 pg/mL (<=100)
== END 2021-03-22 10:22 | disposition home or self-care (01) ==
PROVIDERS: PCP Internal Medicine; Visit Provider Internal Medicine Gastroenterology
PROC: 0DJ08ZZ Inspection of Upper Intestinal Tract, Via Natural or Artificial Opening Endoscopic (ICD-10-PCS; CPT 43235; principal; 2021-03-22 08:20)
DX: K25.9 Gastric ulcer, unspecified as acute or chronic, without hemorrhage or perforation (principal); R11.2 Nausea with vomiting, unspecified; K21.9 Gastro-esophageal reflux disease without esophagitis; K22.89 Other specified disease of esophagus; K29.80 Duodenitis without bleeding; K31.89 Other diseases of stomach and duodenum; B96.81 Helicobacter pylori [H. pylori] as the cause of diseases classified elsewhere; K44.9 Diaphragmatic hernia without obstruction or gangrene; K59.04 Chronic idiopathic constipation; M54.6 Pain in thoracic spine; M54.2 Cervicalgia; I10 Essential (primary) hypertension; E11.9 Type 2 diabetes mellitus without complications; F32.9 Major depressive disorder, single episode, unspecified
CPT/HCPCS: 43239; 36415; 82941; 82947; 88305; 88342

== ENCOUNTER → 2021-04-05 14:00 | Outpatient (BNVA) | payer MEDICARE, SELFPAY | PROVIDERS: PCP Internal Medicine; Referring Provider Internal Medicine; Visit Provider Nurse Practitioner | DX: K59.04 Chronic idiopathic constipation (principal); K64.9 Unspecified hemorrhoids; K57.92 Diverticulitis of intestine, part unspecified, without perforation or abscess without bleeding; R10.9 Unspecified abdominal pain; A04.8 Other specified bacterial intestinal infections | CPT/HCPCS: 99202 ==

== ENCOUNTER 2021-04-29 08:02 | Outpatient (REF) | payer MEDICARE, SELFPAY ==
--- NOTE | ~2021-04-29 | MR_ITS ---
EXAMINATION: MR ABDOMEN WITHOUT CONTRAST CLINICAL INFORMATION: Epigastric and back pain for one year. Other disease of the stomach/duodenum COMPARISON: Gastric emptying exam September 2020 TECHNIQUE: MR abdomen is performed without gadolinium contrast. MRCP sequences were also performed. FINDINGS: LUNG BASES: The visualized lung bases are unremarkable. LIVER, GALLBLADDER, AND BILIARY TREE: The liver is normal in size, shape and contour. There is slight signal loss in the liver questionable for mild fatty infiltration. There is a small peripheral 5 mm lesion in the anterior segment of the right lobe of the liver. This is slightly low signal on T1-weighted sequences and high signal on T2-weighted sequences. This may represent a small cyst. The gallbladder is normal in size. There is a small low-signal lesion in the gallbladder suggestive of a gallstone. This measures 1 cm. The gallbladder wall does not appear thickened. There is no pericholecystic fluid. The cystic duct is unremarkable. The intrahepatic and extrahepatic bile ducts are normal in caliber. The common bile duct measures 7 mm. There is a small cyst at the ampulla junction of the common bile duct and main pancreatic duct suggestive of a type III choledochal cyst. This measures approximately 7 mm. PANCREAS: Unremarkable. SPLEEN: Unremarkable. ADRENAL GLANDS: Unremarkable. KIDNEYS AND URETERS: The kidneys are normal in size and shape. No hydronephrosis. No perinephric stranding. There is a small 5 x 8 mm bright T2 lesion in the mid right kidney. This is not appreciated on all sequences and difficult to characterize and may represent a small cyst. GASTROINTESTINAL TRACT: No bowel obstruction. No ascites or fluid collection. ABDOMINAL WALL: No significant hernia is appreciated. LYMPH NODES: No lymphadenopathy. VASCULAR: Unremarkable. OSSEOUS STRUCTURES: Marrow signal normal. There is evidence of degenerative disc disease of the thoracic and lumbar spine. 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 Normal caliber intrahepatic and extrahepatic bile ducts. Small gallstone in gallbladder.
== END 2021-04-29 08:03 | disposition home or self-care (01) ==
LOC: HO.MRI 08:02
PROVIDERS: Visit Provider Internal Medicine Gastroenterology
DX: K31.89 Other diseases of stomach and duodenum (principal)
CPT/HCPCS: 74181

== ENCOUNTER 2021-05-10 06:07 | Outpatient (REF) | payer MEDICARE, SELFPAY | END 2021-05-10 06:08 | disposition home or self-care (01) | LOC: HO.LNP 06:07 | PROVIDERS: Visit Provider Nurse Practitioner | DX: K57.92 Diverticulitis of intestine, part unspecified, without perforation or abscess without bleeding (principal) | CPT/HCPCS: 87338 ==